=== PATIENT | male | born 1995 | race Caucasian/White ===

== ENCOUNTER 2020-05-30 07:45 | Emergency (ER) | payer OTHER ==
[~2020-05-30] VITALS: Ht 177.8 cm; Wt 78.0 kg
[2020-05-30] MEDS ORDERED: TDAP [DIPH/PERTUSSIS/TET] 0.5 ML VIAL IM ONE ×2 (07:57→08:00)
--- NOTE | 2020-05-30 08:10 | NUR ---
wheeled patient to ct
--- NOTE | 2020-05-30 08:16 | NUR ---
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 On room air, breathing evenly and unlabored. Kept comfortable, patient refused left eyebrow stitches. Will continue to monitor accordingly.
--- NOTE | 2020-05-30 08:18 | NUR ---
patient came back from ct
[2020-05-30 08:59] VITALS: BP 128/78
--- NOTE | 2020-05-30 09:00 | NUR ---
Patient given written and verbal discharge instructions. Patient verbalizes understanding of instructions. Patient is ambulatory with steady gait. Refuses offer of half-way placement. Patient given list of available shelters in surrounding area. Patient refused to sign homeless waiver and discharge paper. Dressing applied on the left eyebrow, patient refused stitches "i am fine".
== END 2020-05-30 09:00 | disposition home or self-care (01) ==
LOC: ER 07:49
DX: S02.2XXA Fracture of nasal bones, initial encounter for closed fracture (principal); S01.112A Laceration without foreign body of left eyelid and periocular area, initial encounter; W01.0XXA Fall on same level from slipping, tripping and stumbling without subsequent striking against object, initial encounter; Y93.89 Activity, other specified; Y92.89 Other specified places as the place of occurrence of the external cause; Y99.8 Other external cause status
CPT/HCPCS: 70450-TC; 70486-TC; 72125-TC; 90715